=== PATIENT | female | born 1965 | race Two or more races ===

== ENCOUNTER 2017-11-11 13:58 | Outpatient (CLI) | payer OTHER ==
[~2017-11-11 13:58] MED LIST: ALLEGRA ALLERG180 MG PO; CATAFLAM50 MG PO
== END 2017-11-11 14:29 | disposition home or self-care (01) ==
LOC: RAD 13:58
DX: Z12.31 Encounter for screening mammogram for malignant neoplasm of breast (principal); Z13.220 Encounter for screening for lipoid disorders; Z12.39 Encounter for other screening for malignant neoplasm of breast; Z13.1 Encounter for screening for diabetes mellitus; Z13.29 Encounter for screening for other suspected endocrine disorder; Z12.11 Encounter for screening for malignant neoplasm of colon; Z12.4 Encounter for screening for malignant neoplasm of cervix; Z11.3 Encounter for screening for infections with a predominantly sexual mode of transmission; N95.1 Menopausal and female climacteric states; N92.6 Irregular menstruation, unspecified; M54.2 Cervicalgia; H54.7 Unspecified visual loss; E78.4 Other hyperlipidemia; E55.9 Vitamin D deficiency, unspecified; M25.512 Pain in left shoulder; R41.9 Unspecified symptoms and signs involving cognitive functions and awareness; E53.9 Vitamin B deficiency, unspecified; M79.632 Pain in left forearm; M79.602 Pain in left arm; N60.29 Fibroadenosis of unspecified breast; N64.89 Other specified disorders of breast

== ENCOUNTER 2018-02-24 11:10 | Outpatient (CLI) | payer OTHER | END 2018-02-24 11:33 | disposition home or self-care (01) | LOC: NUCLEAR 11:10 | DX: M85.88 Other specified disorders of bone density and structure, other site (principal); M81.0 Age-related osteoporosis without current pathological fracture ==

== ENCOUNTER 2020-01-18 07:59 | Outpatient (CLI) | payer OTHER | END 2020-01-18 15:00 | disposition home or self-care (01) | LOC: LAB 07:59 | PROVIDERS: ATTEND Specialist | DX: E03.8 Other specified hypothyroidism (principal); Z00.8 Encounter for other general examination; E55.9 Vitamin D deficiency, unspecified; Z00.00 Encounter for general adult medical examination without abnormal findings; Z23 Encounter for immunization; E78.2 Mixed hyperlipidemia; Z13.1 Encounter for screening for diabetes mellitus; Z13.220 Encounter for screening for lipoid disorders ==

== ENCOUNTER 2021-07-06 11:56 | Outpatient (CLI) | payer OTHER | END 2021-07-06 11:57 | disposition home or self-care (01) | LOC: TOM 11:56 | PROVIDERS: ATTEND Internal Medicine Cardiovascular Disease | DX: R55 Syncope and collapse (principal) ==

== ENCOUNTER 2021-07-19 08:17 | Outpatient (CLI) | payer OTHER | END 2021-07-19 08:18 | disposition home or self-care (01) | LOC: NUCLEAR 08:17 | PROVIDERS: ATTEND Internal Medicine Cardiovascular Disease | DX: I20.1 Angina pectoris with documented spasm (principal) ==

== ENCOUNTER 2021-08-14 10:46 | Outpatient (CLI) | payer OTHER | END 2021-08-14 10:47 | disposition home or self-care (01) | LOC: LAB 10:46 | DX: Z20.822 Contact with and (suspected) exposure to COVID-19 (principal) ==

== ENCOUNTER 2021-11-19 13:26 | Outpatient (CLI) | payer OTHER | END 2021-11-19 13:36 | disposition home or self-care (01) | LOC: TOM 13:26 | DX: R07.9 Chest pain, unspecified (principal); R05.9 Cough, unspecified ==

== ENCOUNTER 2022-10-29 07:35 | Outpatient (CLI) | payer OTHER | END 2022-10-29 07:52 | disposition home or self-care (01) | LOC: TOM 07:35 | DX: R10.9 Unspecified abdominal pain (principal); R10.2 Pelvic and perineal pain; M51.86 Other intervertebral disc disorders, lumbar region; M54.50 Low back pain, unspecified; M25.552 Pain in left hip; D72.819 Decreased white blood cell count, unspecified; Z85.3 Personal history of malignant neoplasm of breast; E55.9 Vitamin D deficiency, unspecified; E78.00 Pure hypercholesterolemia, unspecified; R94.6 Abnormal results of thyroid function studies; E04.1 Nontoxic single thyroid nodule; E03.8 Other specified hypothyroidism; E06.3 Autoimmune thyroiditis ==

== ENCOUNTER 2024-03-28 13:11 | Emergency (ER) | payer OTHER ==
[~2024-03-28] VITALS: Ht 170.2 cm; Wt 76.2 kg
[2024-03-28] MEDS ORDERED: METOCLOPRAMIDE HCL 5 MG/ML VIAL IV ONE (14:15)
[2024-03-28] MEDS ORDERED: 0.9 % SODIUM CHLORIDE 250 ML IV ONE (14:15)
[2024-03-28] MEDS ORDERED: KETOROLAC TROMETHAMINE 30 MG VIAL IV ONE (14:15)
[2024-03-28] MEDS ORDERED: KETOROLAC TROMETHAMINE 30 MG VIAL ONE (14:22)
[2024-03-28] MEDS ORDERED: METOCLOPRAMIDE HCL 5 MG/ML VIAL ONE (14:23)
[2024-03-28] MEDS ORDERED: NAPROXEN500 MG PO (15:42)
== END 2024-03-28 15:57 | disposition home or self-care (01) ==
LOC: ER 13:13
DX: R51.9 Headache, unspecified (principal); E03.9 Hypothyroidism, unspecified

== ENCOUNTER 2024-05-10 07:51 | Outpatient (CLI) | payer OTHER ==
[~2024-05-10 07:51] MED LIST changes: +NAPROXEN500 MG PO
== END 2024-05-10 08:07 | disposition home or self-care (01) ==
LOC: SONOGRAMA 07:51
PROVIDERS: ATTEND Internal Medicine Endocrinology, Diabetes & Metabolism
DX: E04.2 Nontoxic multinodular goiter (principal)

== ENCOUNTER 2025-01-20 08:54 | Outpatient (CLI) | payer OTHER | END 2025-01-20 08:58 | disposition home or self-care (01) | LOC: TOM 08:54 | DX: R51.9 Headache, unspecified (principal); E78.00 Pure hypercholesterolemia, unspecified; E06.3 Autoimmune thyroiditis; M85.9 Disorder of bone density and structure, unspecified; N95.1 Menopausal and female climacteric states; Z85.3 Personal history of malignant neoplasm of breast; R73.09 Other abnormal glucose; E55.9 Vitamin D deficiency, unspecified ==